=== PATIENT | male | born 1940 | race Caucasian/White ===

== ENCOUNTER 2016-12-29 17:58 | Inpatient (IN) | payer MEDICARE ==
[2016-12-29 19:05] LABS: Hematocrit 42.3 % (42.0-52.0); Hemoglobin 14.4 gm/dL (13.5-18.0); Mean Cell Volume 94.4 fl (78-100); Mean Corpuscular Hemoglobin 32.1 pg (27-31); Platelet Count 168 K/mm3 (150-450); Red Blood Count 4.48 M/mm3 (4.7-6.0); Red Cell Distribution Width 13.3 % (11.5-14.0); White Blood Count 5.4 K/mm3 (4.0-10.5)
--- NOTE | 2016-12-29 19:05 | ERNOTE ---
Medical Problem HPI - Narrative Date of Service: 12/29/16 - General Chief Complaint: General Assessment Time Seen by Provider: 12/29/16 18:48 Source: patient Exam Limitations: no limitations - Immun/Allergies/Home Medications Immunizations: IMMUNIZATION HX Immunizations Up to Date No History of Influenza Vaccine No Hx Pneumococcal Vaccination No Allergies/Adverse Reactions: Allergies Tetanus Vaccines and Toxoid [Tetanus Vaccines & Toxoid] Allergy (Mild, Verified 08/14/14 07:05) Hives Home Medications: HOME MEDICATIONS Atorvastatin Calcium [Lipitor] 40 mg PO HS 07/26/14 [Last Taken 08/14/14] Enoxaparin Sodium [Lovenox] 40 mg SC Q24H #6 disp.syrin 08/18/14 [Last Taken Unknown] Sennosides/Docusate Sodium [Senokot-S] 2 tab PO HS #20 tablet 08/18/14 [Last Taken Unknown] Aspirin 81 mg PO DAILY 12/29/16 [Last Taken Unknown] - History of Present History Narrative: Pt. comes in with c/o SOB for four days, weakness, fatigue, palpitations, and hot and cold flashes. Pt. denies any fvers, CP, NVD, but pt. has had an WA with three stents placed in 2004. Pt. denies any alleviating factors, aggravating factors, or prehospital treatment. Review of Systems - Review of Systems Constitutional: Present: chills, diaphoresis, weakness, fatigue, malaise. Absent: recent illness, fever, weight loss EYE: Present: no symptoms reported ENT: Present: no symptoms reported Respiratory: Present: shortness of breath. Absent: cough, wheezing Cardiology: Present: palpitations. Absent: chest pain, edema Gastrointestinal/Abdominal: Present: no symptoms reported. Absent: nausea, vomiting, diarrhea, abdominal pain Genitourinary: Present: no symptoms reported. Absent: frequency, decreased urinary output Musculoskeletal: Present: no symptoms reported. Absent: back pain, neck pain, joint pain Skin: Present: no symptoms reported Neurological: Present: no symptoms reported. Absent: headache, dizziness/light- headedness, numbness, tingling Endocrine: Present: intolerance to heat, intolerance to cold All Other Systems: All systems neg except as marked - Patient's Past Medical History Patient History - Medical: No pertinent hx Patient History - Cardiac/Respiratory: Hyperlipidemia, Myocardial Infarction Patient History - Cancer: No Hx of Cancer Patient History - Surgical Procedures: Cardiac stent, Total Knee Replacement Patient History - Other: None - Social History Living Situations: home Abuse History: No History of abuse Psych History: No pertinent hx Smoking Status: Former smoker Have you smoked in the past 12 months: No Do you dip or chew tobacco: No Alcohol Use: none Drug Use: none - Immunizations Immunizations Up to Date: No Hx Pneumococcal Vaccination: No History of Influenza Vaccine: No Physical Exam - Physical Exam General Appearance: Present: wd/wn, alert, moderate distress Eye Exam: Normal inspection: bilateral, PERRL: bilateral, EOMI: bilateral Ears, Nose, Throat: Present: normal ENT inspection, normal pharynx Neck: Present: normal inspection, nontender, supple, full range of motion. Absent: lymphadenopathy (R), lymphadenopathy (L) Respiratory: Present: no accessory muscle use, chest nontender, respiratory distress, decreased breath sounds Cardiovascular/Chest: Present: no murmur, tachycardia, irregularly irregular Peripheral Pulses: N=norm/S=strong/W=weak/B=bound/A=absent: Carotid (R): Normal , Carotid (L): Normal, Radial (R): Weak, Radial (L): Weak, Femoral (R): Normal, Femoral (L): Normal, Dorsalis-pedis (R): Weak, Dorsalis-pedis (L): Weak Gastrointestinal/Abdominal: Present: normal bowel sounds, nontender, nondistended, soft, no organomegaly Back Exam: Present: normal inspection, normal range of motion, no CVA tenderness , no vertebral tenderness Extremity Exam: Present: normal inspection, non-tender, normal range of motion, no edema Neurological Exam: Present: alert, oriented, normal mood/affect, no motor/ sensory deficits, motor boss II-XII nml as tested, normal cerebellar test Skin Exam: Present: cool/dry, pallor ED Progress - Date and Time Seen: Date and Time: 12/29/16 20:22 Discussed with Nadja and we will admit here for A fib RVR, SOB, and elevated D Dimer - Results and Orders Patient's Lab Results:: I have reviewed the patient's lab results. - Vital Signs Patient's Vital Signs:: I have reviewed the patient's vital signs. Vital Signs: Vital Signs 12/29/16 18:22 Temperature 37.5 C Pulse Rate 85 Respiratory 18 Rate Blood Pressure 130/48 O2 Sat by Pulse 95 Oximetry - EKG EKG: atrial fibrillation, other - RVR 172 EKG read: Reviewed by me EKG Comments: Interpret by Dr Plata - Progress/Reassessment Chief Complaint: General Assessment Departure - Departure Clinical Impression: A-fib Qualifiers: Atrial fibrillation type: unspecified Qualified Code(s): I48.91 - Unspecified atrial fibrillation Dyspnea Qualifiers: Dyspnea type: shortness of breath Qualified Code(s): R06.02 - Shortness of breath Disposition: CH Condition: Serious Referrals: Cindy Gutierrez MD [Primary Care Provider] -
--- OUTSIDE RECORDS SUMMARY | 2016-12-29 19:05 | XMS REPORT | Continuity of Care Document ---
:1940 Author Organization [facility] ([facility]) Address [address] [place] [address] Phone [phone] Care Team Providers Name Role Phone Heri Cevallos Primary Care Provider [phone] Source Comments This disclosure is being made pursuant to the Care Everywhere program, applicable federal and state laws, and may not contain all informaitonavailable regarding this patient.[facility] ([facility]) Active Allergies and Adverse Reactions Allergen Noted Date Severity Reactions Comments Tetanus Toxoid, Adsorbed 01/19/2015 Unknown Current Medications Prescription Sig. Disp. Refills Start Date End Date Status aspirin, buffered 81 mg Take 1 Tab by 12/19/2010 Active tablet mouth daily nitroglycerin Place 1 tablet 25 tablet 11 01/31/2016 Active (NITROSTAT) 0.4 mg SL (0.4 mg total) tablet under the tongue every 5 minutes as needed. atorvastatin 40 mg Take 1 tablet (40 90 tablet 1 07/17/2016 Active tablet mg total) by mouth daily. Active Problems Problem Noted Date Ascending aortic aneurysm 01/31/2015 Arthritis 01/30/2015 Chronic ischemic heart disease 05/15/2014 CAD in [place] artery 05/15/2014 Overview: Distal RCA Liberte 3.5 x 28 mm BMS in 2005 Essential (primary) hypertension 05/15/2014 Hypercholesterolemia without hypertriglyceridemia 02/01/2014 Social History Tobacco Use Types Packs/Day Years Used Date Former Smoker Last Filed Vital Signs Vital Sign Reading Time Taken Blood Pressure 126/88 01/30/2016 10:00 AM CDT Pulse 72 01/30/2016 10:00 AM CDT Temperature - - Respiratory Rate - - Height - - Weight 114.306 kg (252 lb) 01/30/2016 10:00 AM CDT Body Mass Index - - Oxygen Saturation - - Plan of Care Date Type Specialty Providers Description 01/28/2017 Appointment [facility], Chief Comp: Patient MD Reported Reason For [address] [place] [address] [phone] (Fax) Health Maintenance Due Date Last Done Comments Hepatitis B Vaccine (1 of 3 - Primary Series) 1940 Lipid Disorder Screening 1956 Colonoscopy 11/13/1988 Zoster Vaccine 1998 Pneumococcal Vaccine (1 of 2 - PCV13) 11/15/2003 Influenza Vaccine: Seasonal (Season Ended) 2017 Results from Last 3 Months Not on file
[2016-12-29 19:08] LABS: Total Cells Counted 100
[2016-12-29] MEDS ORDERED: DILTIAZEM HCL 5 MG/ML VIAL IV ONE ×2 (19:17→19:26)
[2016-12-29] MEDS ORDERED: NORMAL SALINE 1,000 ML IV ONE (19:19)
[2016-12-29 19:46] LABS: Albumin * 3.3 gm/dl (3.4-5.0); Anion Gap 14.7 mmol/L (6.8-13.8); Atypical (Reactive) Lymph 1 % (0-2); BUN/Creatinine Ratio 14.3 (9.0-21.6); Band 3 % (0-2.0); Basophil 1 % (0-1); Bilirubin, Total 0.8 mg/dL (0.0-1.1); Ca. Corrected For Albumin 8.7 mg/dL (8.4-10.2); Calcium * 8.5 mg/dL (7.9-10.9); Carbon Dioxide 25.4 mmol/L (24-32.6); Lymphocyte 20 % (20-51); Monocyte 6 % (0-9); Neutrophil 69 % (42-75); Neutrophil # 3.7 K/mm3 (1.3-6.0); Potassium 4.1 mmol/L (3.4-4.6); Total Protein 7.5 gm/dL (6.2-8.2)
[2016-12-29 19:48] LABS: Platelet Estimate Normal (NORMAL); Polychromasia Trace; RBC Morphology Normal (NORMAL); Troponin I 0.039 ng/ml (0.00-0.10)
--- OUTSIDE RECORDS SUMMARY | 2016-12-29 20:38 | XMS REPORT | Continuity of Care Document ---
:1940 Author Organization [facility] ([facility]) Address [address] [place] [address] Phone [phone] Care Team Providers Name Role Phone Heri Cevallos Primary Care Provider [phone] Source Comments This disclosure is being made pursuant to the Care Everywhere program, applicable federal and state laws, and may not contain all informaitonavailable regarding this patient.[facility] ([facility]) Active Allergies and Adverse Reactions Allergen [...] Chronic ischemic heart disease 05/15/2014 CAD in [place] artery 05/15/2014 Overview: Distal RCA Liberte 3.5 [...] Reported Reason For [address] [place] [address] [phone] (Fax) Health Maintenance Due Date Last Done Comments Hepatitis B Vaccine (1 of 3 - Primary Series) 1940 Lipid Disorder Screening 1956 Colonoscopy 11/13/1988 Zoster Vaccine 1998 Pneumococcal Vaccine (1 of 2 - PCV13) 11/15/2003 Influenza Vaccine: Seasonal (Season Ended) 2017 Results from Last 3 Months Not on file
[2016-12-29 21:30] LABS: Urine Bilirubin Negative (NEGATIVE); Urine Blood Negative /ul (NEGATIVE); Urine Ketone Negative (NEGATIVE); Urine Nitrite Negative (NEGATIVE); Urine Protein 15 mg/dL (NEGATIVE); Urine Specific Gravity 1.025 SP.GR. (1.005-1.030); Urine pH 5.5 pH (5.0-7.0)
[2016-12-29 21:45] LABS: Urine Appearance Clear; Urine Bacteria 1+; Urine Coarse Granular Cast 0-5 /LPF; Urine Color Dark Yellow; Urine Fine Granular Cast 0-5 /LPF; Urine Mucus Few - 1+; Urine RBC None Seen /hpf (0-5); Urine WBC None Seen /hpf (0-5)
[2016-12-29] MEDS ORDERED: NORMAL SALINE 1,000 ML IV PRN (22:20)
--- NOTE | 2016-12-29 22:40 | HP ---
Chief Complaint - Chief Complaint Date of Service: 12/29/16 Time of Service: 22:40 Chief Complaint: " Worsening SOB". Source of HPI- Pt; reliable, ER provider report. History of Present Illness: Mr. Contreras is a 76-yr-old WM pt with a PMH of: CAD, HTN, HLD, Gout, MD, Osteoathritis & Osteopenia. Pt reports that he has been in his normal state of wellbeing until Last 12/25, when he noticed that he was getting more SOB.This was later accompanied by hot & cold flashes and coughing. The cough however is dry. He reports that the SOB was worse even with mild activity such as walking to the mail box. He denies the associated symptoms of palpitations, chest pain, or pain with inspiration and expiration. He chose to go to walk-in clinic as he 'just wasn't getting any better with his SOB, coughing and hot/ cold flashes.' His HR was found to be irregular by the examining provider and pt was sent to the ED for further evaluation. While at the ED, he was found to be in Afib with RVR of 170s. He was given Cardizem 20mg IVP X 1 and that controlled his HR to the low 100s-120s. The CXR obtained showed no Pneumonia but there were findings concerning pulmonary edema/ CHF and his BNP was also found to be elevated at 3924.The BMP showed elevated BUN/CR 26/1.82 suggestive of Acute on Chronic Renal Failure. Pt will be admitted inpatient due to new clinical presentation signs of CHF, New onset of A-fib with RVR & Acute on Chronic Renal failure. - Patient's Past Medical History Patient History - Medical: Osteoarthritis, Other - Gout, Osteopenia, Patient History - Cardiac/Respiratory: Hypertension, Hyperlipidemia, Myocardial Infarction Patient History - Cancer: No Hx of Cancer Patient History - Surgical Procedures: Cardiac stent, Total Knee Replacement Patient History - Other: None - Family History Father Family History - Medical: Family History - Cardiac/Respiratory: Coronary Heart Disease Mother Family History - Cardiac/Respiratory: Coronary Heart Disease, Hypertension - Social History Living Situations: home Abuse History: No History of abuse Psych History: No pertinent hx Smoking Status: Former smoker Have you smoked in the past 12 months: No Do you dip or chew tobacco: No Alcohol Use: none Drug Use: none - Immunizations Immunizations Up to Date: No Hx Pneumococcal Vaccination: No History of Influenza Vaccine: No Review Of Systems (GEN) - Review of Systems Generalized/Overall Review: Present: Weakness, Chills, Malaise, Diaphoresis, Fatigue. Absent: Fever EENTM: Absent: Eye Pain, Blurred Vision, Double Vision, Nose Congestion Respiratory: Present: Cough, Shortness of Breath. Absent: Orthopnea Cardiac: Absent: Chest Pain, Edema, Palpitations Abdominal: Absent: Nausea, Vomiting, Hematemesis, Constipation, Diarrhea Genitourinary: Absent: Burning, Itching, Urgency, Frequency Musculoskeletal: Absent: Joint Pain, Back Pain, Joint Swelling Neurological: Absent: Headache, Anxiety, Depressed, Emotional Problems Skin: Absent: Dryness, Lesions, Lumps Endocrine: Absent: Intolerance to Heat, Increased Hunger Misc: All systems neg except as marked Allergies/Adverse Reactions: Allergies Allergy/AdvReac Type Severity Reaction Status Date / Time Tetanus Vaccines and Toxoid Allergy Mild Hives Verified 08/14/14 07:05 [Tetanus Vaccines & Toxoid] Home Medications: HOME MEDICATIONS Atorvastatin Calcium [Lipitor] 40 mg PO HS 07/26/14 [Last Taken 08/14/14] Sennosides/Docusate Sodium [Senokot-S] 2 tab PO HS #20 tablet 08/18/14 [Last Taken Unknown] Aspirin 81 mg PO DAILY 12/29/16 [Last Taken Unknown] Exam - Exam Vital Signs: Vital Signs - Last Taken Temp 37.9 C H 12/29/16 19:23 Pulse 125 H 12/29/16 21:08 Resp 20 12/29/16 21:08 BP 131/63 12/29/16 21:08 Pulse Ox 94 12/29/16 21:08 Constitutional: Present: Alert, Oriented x3, Cooperative, No distress ENT Exam: Present: normal ENT inspection, hearing grossly normal, dry mucous membranes Eye Exam: bilateral eye: normal inspection, PERRL Neck: Present: full range of motion, supple, normal inspection Back Exam: Present: normal inspection, no CVA tenderness Breasts: Present: Exam deferred Respiratory: Present: normal breath sounds, accessory muscle use, No wheezing Cardiovascular/Chest: Present: normal peripheral pulses, regular rate, rhythm, no chest tenderness, no murmur Abdomen: Present: Normal bowel sounds, soft, nontender, obese /Rectal: Present: Exam deferred Extremity: Present: normal range of motion, non-tender, normal inspection, no pedal edema Skin Exam: Present: diaphoresis, other - Flushed face Lymphatic: Present: no adenopathy Neurologic: Present: no motor/sensory deficits, alert, normal mood/affect, oriented x 3 Appearance: Present: appropriate appearance, appropriate insight Eye contact: Present: cooperative, good eye contact, normal speech Thoughts: Present: normal thought pattern, no apparent hallucination Diagnostic Studies: Abnormal Lab Results 12/29/16 Range/Units 21:25 Urine Protein 15 H (NEGATIVE) mg/dL Urine Urobilinogen 2.0 H (NORMAL) EU/dl Urine Bacteria 1+ H (NONE) Fine Granular Casts 0-5 H (NONE) /LPF Coarse Granular Casts 0-5 H (NONE) /LPF Urine Mucus Few - 1+ H (NONE) Laboratory Results WBC 5.4 K/mm3 (4.0-10.5) 12/29/16 19:00 RBC 4.48 M/mm3 (4.7-6.0) L 12/29/16 19:00 Hgb 14.4 gm/dL (13.5-18.0) 12/29/16 19:00 Hct 42.3 % (42.0-52.0) 12/29/16 19:00 MCV 94.4 fl (78-100) 12/29/16 19:00 MCH 32.1 pg (27-31) H 12/29/16 19:00 MCHC 34.0 g/dl (32-36) 12/29/16 19:00 RDW 13.3 % (11.5-14.0) 12/29/16 19:00 Plt Count 168 K/mm3 (150-450) 12/29/16 19:00 Neutrophils % (Manual) 69 % (42-75) 12/29/16 19:00 Band Neuts % (Manual) 3 % (0-2.0) H 12/29/16 19:00 Lymphocytes % (Manual) 20 % (20-51) 12/29/16 19:00 Monocytes % (Manual) 6 % (0-9) 12/29/16 19:00 Basophils % (Manual) 1 % (0-1) 12/29/16 19:00 Neutrophils # (Manual) 3.7 K/mm3 (1.3-6.0) 12/29/16 19:00 Lymphocytes # (Manual) 1.1 k/mm3 (1.5-3.5) L 12/29/16 19:00 Monocytes # (Manual) 0.3 k/mm3 (0.0-1.0) 12/29/16 19:00 Basophils # (Manual) 0.1 k/mm3 (0.0-0.1) 12/29/16 19:00 Atypic/Reactive Lymphs 1 % (0-2) 12/29/16 19:00 Toxic Vacuolation Trace 12/29/16 19:00 Platelet Estimate Normal (NORMAL) 12/29/16 19:00 RBC Morphology Normal (NORMAL) 12/29/16 19:00 Polychromasia Trace 12/29/16 19:00 D-Dimer 3.41 mg/L (0.19-0.49) H 12/29/16 19:00 Sodium 131 mmol/L (132-142) L 12/29/16 19:00 Plasma Sodium 132 mmol/L (130-142) 12/29/16 19:00 Potassium 4.1 mmol/L (3.4-4.6) 12/29/16 19:00 Chloride 95 mmol/L (97-106) L 12/29/16 19:00 Carbon Dioxide 25.4 mmol/L (24-32.6) 12/29/16 19:00 Anion Gap 14.7 mmol/L (6.8-13.8) H 12/29/16 19:00 BUN 26 mg/dL (6-23) H 12/29/16 19:00 Creatinine 1.82 mg/dL (0.4-1.4) H 12/29/16 19:00 Est GFR (Non-Af Amer) 38 mL/min (60-130) L 12/29/16 19:00 BUN/Creatinine Ratio 14.3 (9.0-21.6) 12/29/16 19:00 Random Glucose 132 mg/dL (70-110) H 12/29/16 19:00 Calcium 8.5 mg/dL (7.9-10.9) 12/29/16 19:00 Calcium Adj for Albumin 8.7 mg/dL (8.4-10.2) 12/29/16 19:00 Total Bilirubin 0.8 mg/dL (0.0-1.1) 12/29/16 19:00 AST 74 U/L (0-48) H 12/29/16 19:00 ALT 81 U/L (19-67) H 12/29/16 19:00 Alkaline Phosphatase 116 U/L (50-170) 12/29/16 19:00 Troponin I 0.039 ng/ml (0.00-0.10) 12/29/16 19:00 B-Natriuretic Peptide 3924 pg/mL (5-650) H 12/29/16 19:00 Total Protein 7.5 gm/dL (6.2-8.2) 12/29/16 19:00 Albumin 3.3 gm/dl (3.4-5.0) L 12/29/16 19:00 Urine Color Dark yellow 12/29/16 21:25 Urine Appearance Clear 12/29/16 21:25 Urine pH 5.5 pH (5.0-7.0) 12/29/16 21:25 Ur Specific Central 1.025 SP.GR. (1.005-1.030) 12/29/16 21:25 Urine Protein 15 mg/dL (NEGATIVE) H 12/29/16 21:25 Urine Glucose (UA) Negative mg/dL (NEGATIVE) 12/29/16 21: Urine Ketones Negative mg/dL (NEGATIVE) 12/29/16 21:25 Urine Blood Negative /ul (NEGATIVE) 12/29/16 21:25 Urine Nitrate Negative (NEGATIVE) 12/29/16 21:25 Urine Bilirubin Negative mg/dl (NEGATIVE) 12/29/16 21:25 Prot Sulfosalicylic Acd Negative mg/dL (0) 12/29/16 21:25 Urine Urobilinogen 2.0 EU/dl (NORMAL) H 12/29/16 21:25 Ur Leukocyte Esterase Negative /ul (NEGATIVE) 12/29/16 21:25 Urine RBC None seen /hpf (0-5) 12/29/16 21:25 Urine WBC None seen /hpf (0-5) 12/29/16 21:25 Ur Epithelial Cells 0-5 /hpf (0-5) 12/29/16 21:25 Urine Bacteria 1+ (NONE) H 12/29/16 21:25 Fine Granular Casts 0-5 /LPF (NONE) H 12/29/16 21:25 Coarse Granular Casts 0-5 /LPF (NONE) H 12/29/16 21:25 Urine Mucus Few - 1+ (NONE) H 12/29/16 21:25 Urine Culture Comments No culture indicated 12/29/16 21:25 Influenza Type A Ag Negative (NEGATIVE) 12/29/16 18:30 Influenza Type B Ag Negative (NEGATIVE) 12/29/16 18:30 Assessment/Plan - Assessment/Plan (1) CHF (congestive heart failure) Assessment: Mr. Contreras presented with c/c of worsening SOB. He denies PND & Orthopnea and has no peripheral edema/lower extremity edema. The CXR obtained at the ED showed increased peripheral lung vascular markings, Cardiomegaly, and was also noted to have BNP 3924 and all of the findings are suggestive of CHF. Will diurese with IV Lasix and give replacement dose of K orally. He will need an Echocardiogram to determine and valvular Heart disease & ventricular size. Will monitor kidney function and volume status to determine upcoming doses. Also provide CHF teaching, monitor daily weight and I/O, Check BMP in am. Problem: Acute (2) New onset a-fib Assessment: Pt noted to have a new onset of Afib and will therefore need to be on Thromboembolic prophylaxis. He has a score of 3 on MOE'S 2 Score which is a high risk of thromboembolic event & there is 5.9% per yr if no coumadin. I have discussed with him about the increased risk of stroke or from thromboembolism/clot due to Afib and how it can be reduced by being on an anticoagulant. He wants to wait until tomorrow to discuss further after checking with spouse. Problem: Acute (3) Atrial fibrillation with RVR Assessment: Received Cardizem IV 20mg at the ED which controlled his HR to 100s-120s. Will place on Remote telemetry and go with Rate control with Cardizem if he starts sustaining 140s-150s, as long as bp is stable, otherwise will go Rhythm control and use Amiodarone. Problem: Acute (4) Acute on chronic renal failure Assessment: His baseline CR is usually in the 1.5-1.7. Today's is 1.82. Hold off hydration due to pulmonary congestion on CXR and SOB. Monitor BMP in am. Problem: Acute (5) Elevated d-dimer Assessment: Pt noted to habe a D-dimer of 3.47. Unable to obtain CT with PE protocol due to pt's elevated creatinine. Will provide coverage with Heparin SQ and plan to obtain a VQ Lung scan in am. Problem: Acute (6) HTN (hypertension) Assessment: Stable- Not on any antihypertensives. Problem: Chronic (7) HLD (hyperlipidemia) Problem: Chronic
[2016-12-29] MEDS ORDERED: METOLAZONE 5 MG TABLET PO SCH (23:00)
[2016-12-29] MEDS ORDERED: FUROSEMIDE 10 MG/ML VIAL IV SCH (23:00)
[2016-12-29] MEDS ORDERED: POTASSIUM CHLORIDE 20 MEQ TABLET.SA PO SCH (23:00)
[2016-12-30] MEDS: HEPARIN SODIUM,PORCINE 5,000 UNITS/ML VIAL SC SCH ×4 (00:20→23:09)
[2016-12-30 06:16] LABS: Anion Gap 16.6 mmol/L (6.8-13.8); BUN/Creatinine Ratio 15.4 (9.0-21.6); Calcium * 8.8 mg/dL (7.9-10.9); Estimated Creat Clear 37.6; Potassium 3.6 mmol/L (3.4-4.6)
[2016-12-30 06:38] LABS: Hematocrit 42.8 % (42.0-52.0); Hemoglobin 14.7 gm/dL (13.5-18.0); Mean Cell Volume 93.9 fl (78-100); Mean Corpuscular Hemoglobin 32.2 pg (27-31); Mean Corpuscular Hgb Conc 34.3 g/dl (32-36); Platelet Count 167 K/mm3 (150-450); Red Blood Count 4.56 M/mm3 (4.7-6.0); Red Cell Distribution Width 13.2 % (11.5-14.0); White Blood Count 5.7 K/mm3 (4.0-10.5)
[2016-12-30 06:52] LABS: Total Cells Counted 100
[2016-12-30 07:05] LABS: Band 7 % (0-2.0); Immature Granulocyte 2 (0-1); Lymphocyte 20 % (20-51); Monocyte 2 % (0-9); Neutrophil 69 % (42-75); Neutrophil # 3.9 K/mm3 (1.3-6.0); Platelet Estimate Normal (NORMAL); RBC Morphology Normal (NORMAL)
[2016-12-30] MEDS ORDERED: DILTIAZEM HCL 5 MG/ML VIAL IV ONE ×2 (08:56→13:32)
[2016-12-30] MEDS ORDERED: ASPIRIN 81 MG TAB.CHEW PO SCH (09:00)
[2016-12-30] MEDS ORDERED: DILTIAZEM HCL 120 MG CAP.SR.24H PO SCH (09:30)
[2016-12-30] MEDS ORDERED: DILTIAZEM HCL 125 MG in DEXTROSE 5 % IN WATER 100 ML IV PRN ×4 (12:45→12:50)
[2016-12-30] MEDS ORDERED: NORMAL SALINE 500 ML IV ONE (13:00)
[2016-12-30] MEDS: NORMAL SALINE 1,000 ML IV PRN ×2 (14:39→20:14)
[2016-12-30] MEDS: DILTIAZEM HCL 90 MG TABLET PO SCH (16:48)
[2016-12-30] MEDS: AMIODARONE HCL 200 MG TABLET PO SCH ×2 (16:49→23:05)
[2016-12-30] MEDS ORDERED: SENNOSIDES/DOCUSATE SODIUM 1 TAB TABLET PO SCH ×2 (21:00)
[2016-12-30] MEDS ORDERED: ATORVASTATIN CALCIUM 40 MG TABLET PO SCH (21:00)
[2016-12-30] MEDS ORDERED: ROSUVASTATIN CALCIUM 10 MG TABLET PO SCH ×2 (21:00)
--- NOTE | 2016-12-30 23:57 | PN ---
Subjective - Date and Time Seen Date: 12/30/16 Time: 08:00 Objective Objective Narrative: Reports feeling better. No chest pain, shortness of breath, fever, or chills. - Vitals Vitals: Last Vital Signs Temp 37.3 C 12/30/16 22:49 Pulse 100 12/30/16 22:49 Resp 18 12/30/16 22:49 BP 121/78 12/30/16 22:49 Pulse Ox 95 12/30/16 22:49 - Exam Constitutional: Present: Alert, Oriented x3, Cooperative Respiratory: Present: lungs clear, normal breath sounds Cardiovascular/Chest: Present: tachycardia, irregularly irregular Abdomen: Present: Normal bowel sounds, soft, nontender, nondistended Skin Exam: Present: normal color, warm/dry, no cyanosis Cauti Physician Documentation - Urinary Catheter Management Uretheral (Olson) Urethral Indwelling: No Assessment/Plan - Problems/Diagnosis (1) Atrial fibrillation with RVR Problem: Acute Narrative: Rate improved with cardizem and amiodarone, still with atrial fibrillation with RVR at times with unstable rate. Patient admitted to acute inpatient due to CHF exacerbation with ustable atrial fibrillation with RVR. Working to control rate with oral medications, but so far unsuccessful. Will continue to titrate up doses. Echo cardiogram today. (2) CHF (congestive heart failure) Problem: Acute
[2016-12-31] MEDS: DILTIAZEM HCL 90 MG TABLET PO SCH ×2 (00:18→07:50)
--- NOTE | 2016-12-31 05:14 | PN ---
Subjective - Date and Time Seen Date: 12/31/16 Time: 05:08 Subjective Narrative: Mr. Contreras is seen today for follow-up of atrial fibrillation w/ RVR and acute congestive heart failure. He was transitioned off of IV diltiazem yesterday and is currently taking dilitiazem 90 mg po Q8 hours in addition to amiodarone 200 mg po Q6 hours. He remains in atrial fibrillation with a controlled rate in the 70s-90s. He denies any chest pain or shortness of breath. His only complaint is that he feels sluggish. Appetite is good. He has been afebrile and hemodynamically stable overnight. Objective - Review of Systems Generalized/Overall Review: Reports: No Symptoms Reported Respiratory: Reports: No Symptoms Reported Cardiac: Reports: No Symptoms Reported Genitourinary Symptoms: Reports: No Symptoms Reported - Vitals Vitals: Last Vital Signs Temp 36.6 C 12/31/16 00:27 Pulse 92 12/31/16 02:07 Resp 20 12/31/16 00:27 BP 113/79 12/31/16 00:27 Pulse Ox 93 12/31/16 00:27 - Exam Constitutional: Present: Alert, Oriented x3, Cooperative ENT Exam: Present: normal ENT inspection, hearing grossly normal, hard of hearing Neck: Present: non-tender Respiratory: Present: chest non-tender, lungs clear, normal breath sounds Cardiovascular/Chest: Present: no edema, no murmur, irregularly irregular Abdomen: Present: Normal bowel sounds Extremity: Present: normal range of motion Skin Exam: Present: normal color, warm/dry, no cyanosis Lymphatic: Present: no adenopathy Neurologic: Present: junior loan processor II-XII nml as tested, oriented x 3 Appearance: Present: appropriate appearance, appropriate insight Eye contact: Present: cooperative, good eye contact Thoughts: Present: normal thought pattern Cauti Physician Documentation - Urinary Catheter Management Uretheral (Olson) Urethral Indwelling: No Assessment/Plan - Problems/Diagnosis (1) A-fib Problem: Acute Qualifiers: Atrial fibrillation type: unspecified Qualified Code(s): I48.91 - Unspecified atrial fibrillation Narrative: His rate has been well-controlled overnight. CHADS2 score is 3 recommending anticoagulation. Continue diltiazem 90 mg Q 8 hours. Consider transitioning to long-acting formulation. Amiodarone 200 mg every 6 hours. (2) Acute on chronic renal failure Problem: Acute Narrative: Creatinine 1.6 yesterday. IV fluids discontinued due to heart failure. He is eating and drinking normally. Closely monitor renal function. Avoid nephrotoxic medications. (3) CHF (congestive heart failure) Problem: Acute Narrative: Echocardiogram on 12/30/2016 reveals LVH with normal EF. No regional wall motion abnormalities. IV fluids were discontinued last evening. He received furosemide initially during hospitalization. Consider adding a beta jose luis to help with rate control in a-fib. ASA 81 mg daily. Daily weights. Strict I&Os. (4) Elevated d-dimer Problem: Acute Narrative: Due to poor renal function, he cannot undergo CT angiogram. VQ scan considered. He is currently on heparin every 8 hours. He will require anticoagulation due to atrial fibrillation. (5) HTN (hypertension) Problem: Chronic Narrative: Currently normotensive.
[2016-12-31] MEDS: AMIODARONE HCL 200 MG TABLET PO SCH ×2 (05:38→10:40)
[2016-12-31] MEDS: HEPARIN SODIUM,PORCINE 5,000 UNITS/ML VIAL SC SCH ×2 (05:38→14:04)
[2016-12-31] MEDS ORDERED: ASPIRIN 81 MG TAB.CHEW PO SCH (09:00)
[2016-12-31] MEDS ORDERED: DILTIAZEM HCL 120 MG CAP.SR.24H PO SCH (09:30)
--- NOTE | 2016-12-31 12:10 | ECHO ---
This report is available in the EMR
[2016-12-31 12:43] LABS: Anion Gap 11.7 mmol/L (6.8-13.8); BUN/Creatinine Ratio 18.7 (9.0-21.6); Bilirubin, Total 0.7 mg/dL (0.0-1.1); Ca. Corrected For Albumin 9.3 mg/dL (8.4-10.2); Calcium * 8.8 mg/dL (7.9-10.9); Carbon Dioxide 28.5 mmol/L (24-32.6); Potassium 3.2 mmol/L (3.4-4.6); TSH * 2.004 uIU/mL (0.358-3.74); Total Protein 7.1 gm/dL (6.2-8.2)
[2016-12-31 14:42] VITALS: BP 139/70
--- NOTE | 2016-12-31 16:28 | DS ---
(1) Atrial fibrillation with RVR Problem: Acute (2) Acute on chronic renal failure Problem: Acute Description of Stay: Santana is a 76 yo male that was admitted with acute CHF, acute on chronic kidney disease stage 3, and new onset atrial fibrillation with rapid ventricular response. He was give IV diltiazem which improved rate from 150s to near 100. He was started on oral diltiazem, but heart rate began to increase. He was placed in the SCU on a diltiazem drip. He continued to have tachycardia and amiodarone was started orally 200mg q6 hours. Heart rate began to improve and he was transitioned to oral diltiazem. He was moved back to the medical floor. He was evaluated with echocardiogram which showed acute diastolic CHF. No clear etiology for atrial fibrillation. He was diuresed with evidence of CHF of pulmonary congestion gently due to CKD3 that was worsened from 1.5 to 1.8. On the morning of 12/31 at 7AM he converted to normal sinus rhythm spontaneously while taking oral diltiazem and amiodarone. He was feeling back to his baseline and he was monitored through the day and remained in sinus rhythm. He was discharged to home. Discussed anticoagulation with him and he elected for eliquis. Discussed that even though he was back in normal sinus rhythm now that his atrial fibrillation may return and he should be on anticoagulation due to his chads score. 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 Montes at [facility] on 01-14-17 @ 2:15pm, they will decide to keep the appointment on the if needed . Follow up with Dr. Gutierrez on 01-07-17 @ 2:30pm. Prescriptions (Any new or edited meds): Amiodarone HCl [Cordarone] 200 mg PO DAILY #30 tablet Apixaban [Eliquis] 5 mg PO BID #60 tablet Diltiazem HCl [Diltiazem 24Hr Cd] 240 mg PO HS #30 cap.er.24h Complete Home Medications List: Complete Home Medication List: Atorvastatin Calcium [Lipitor] 40 mg PO HS 07/26/14 Sennosides/Docusate Sodium [Senokot-S] 2 tab PO HS #20 tablet 08/18/14 Aspirin 81 mg PO DAILY 12/29/16 Amiodarone HCl [Cordarone] 200 mg PO DAILY #30 tablet 12/31/16 Apixaban [Eliquis] 5 mg PO BID #60 tablet 12/31/16 Diltiazem HCl [Diltiazem 24Hr Cd] 240 mg PO HS #30 cap.er.24h 12/31/16
== END 2016-12-31 17:20 | disposition home or self-care (01) | DRG 308 ==
LOC: ER 17:58 → MS 20:34 → OBSVTOIN 12-30 12:44 → SCU 12-30 13:29 → MS 12-30 17:37
PROVIDERS: ADMIT Nurse Practitioner; ATTEND Family Medicine
PROC: B246ZZZ Ultrasonography of Right and Left Heart (ICD-10-PCS; principal; 2016-12-30)
DX: I48.91 Unspecified atrial fibrillation (principal); I50.31 Acute diastolic (congestive) heart failure; N17.9 Acute kidney failure, unspecified; E78.5 Hyperlipidemia, unspecified; R79.1 Abnormal coagulation profile; I12.9 Hypertensive chronic kidney disease with stage 1 through stage 4 chronic kidney disease, or unspecified chronic kidney disease; N18.3 Chronic kidney disease, stage 3 (moderate); I25.2 Old myocardial infarction; Z95.5 Presence of coronary angioplasty implant and graft; Z79.82 Long term (current) use of aspirin
CPT/HCPCS: 36415; 71020; 80048; 80053; 81001; 83880; 84443; 84484; 85007; 85025; 85379; 87400; 93005; 93306; 94760; 96374; 99284; G0378

== ENCOUNTER 2018-04-30 10:27 | Inpatient (IN) | payer MEDICARE ==
[2018-04-30] MEDS ORDERED: ALBUTEROL SULFATE/IPRATROPIUM 3 ML NEBU IH PRN (18:45)
[2018-04-30] MEDS ORDERED: ROSUVASTATIN CALCIUM 10 MG TABLET ONE (20:47)
[2018-04-30] MEDS: DOXYCYCLINE HYCLATE 100 MG TABLET PO SCH (20:54)
[2018-04-30] MEDS: APIXABAN 5 MG TABLET PO SCH (20:54)
[2018-04-30 20:55] LABS: Hematocrit 32.9 % (42.0-52.0); Hemoglobin 10.8 gm/dL (13.5-18.0); Mean Cell Volume 96.5 fl (78-100); Mean Corpuscular Hemoglobin 31.7 pg (27-31); Mean Corpuscular Hgb Conc 32.8 g/dl (32-36); Mean Platelet Volume 8.9 fl (8-11.3); Neutrophil # 10.3 K/mm3 (1.3-6.0); Platelet Count 253 K/mm3 (150-450); Red Blood Count 3.41 M/mm3 (4.7-6.0); White Blood Count 13.2 K/mm3 (4.0-10.5)
[2018-04-30] MEDS: ROSUVASTATIN CALCIUM 20 MG TABLET PO SCH (20:55)
[2018-04-30 21:11] LABS: Albumin * 2.9 gm/dl (3.4-5.0); BUN/Creatinine Ratio 12.4 (9.0-21.6); Bilirubin, Total 0.5 mg/dL (0.0-1.1); Ca. Corrected For Albumin 9.1 mg/dL (8.4-10.2); Calcium * 8.5 mg/dL (7.9-10.9)
--- NOTE | 2018-04-30 22:05 | HP ---
Chief Complaint - Chief Complaint Date of Service: 04/30/18 Time of Service: 18:31 History of Present Illness: 77 year old male presented to the walk in clinic today for cough (states it is sometimes productive, sometimes not) and shortness of breath. States it has been ongoing for "a long time". He denied fever or chills. He denied CP or shortness of breath. He was directly admitted to the hospital for observation for concern of PNA. He had a WBC of 13.2 with a left shift. He was started on O2 once he got to the floor as his sats were @ 88%, he is currently sating 92% on 2L NC when I was able to see him. He was given a round of rocephin for possible multi-focal PNA seen on XR but this looks to be more likely a pulmonary vascular congestion issue. He denies CHF. His other vitals are WNL. He states that the only medications he takes is apixiban, amiodarone, and atorvastatin. He is comfortable now, breathing easy. Medical History (Last Reviewed 04/30/18 @ 15:18 by Brooke Millard RN) Degenerative disc disease Onset Date: ~2012 CAD (coronary artery disease) Onset Date: Unknown COPD (chronic obstructive pulmonary disease) Onset Date: ~2017 Essential hypertension Onset Date: Unknown Gout Onset Date: Unknown Hyperlipidemia Onset Date: Unknown History of fracture of wrist Onset Date: Unknown History of heart artery stent Onset Date: ~2006 Myocardial infarction Onset Date: Unknown Surgical History: Surgical History (Last Reviewed 04/30/18 @ 15:18 by Brooke Millard RN) History of knee replacement procedure of left knee Onset Date: ~2014 History of knee replacement procedure of right knee Onset Date: ~2006 Family History: Family History (Last Reviewed 04/30/18 @ 15:19 by Brooke Millard RN) Father No problems noted. Mother Hypertension CAD (coronary artery disease) Social History: Patient Lives/Resources With Spouse Utilized Occupation Retired Preferred Language Estonian Do you have any samaritan or No cultural preference? Smoking Status Former smoker Have you smoked in the past 12 No months Abuse History No History of abuse Psych History No pertinent hx Review Of Systems (GEN) - Review of Systems Generalized/Overall Review: Present: No Symptoms Reported EENTM: Present: No Symptoms Reported Respiratory: Present: Cough, Shortness of Breath Cardiac: Present: No Symptoms Reported Abdominal: Present: No Symptoms Reported Genitourinary: Present: No Symptoms Reported Musculoskeletal: Present: No Symptoms Reported Neurological: Present: No Symptoms Reported Skin: Present: No Symptoms Reported Immunizations: IMMUNIZATION HX Immunizations Up to Date No History of Influenza Vaccine No Hx Pneumococcal Vaccination No Allergies/Adverse Reactions: Allergies Allergy/AdvReac Type Severity Reaction Status Date / Time Tetanus Vaccines and Toxoid Allergy Mild Hives Verified 04/30/18 15:19 [Tetanus Vaccines & Toxoid] Home Medications: HOME MEDICATIONS Atorvastatin Calcium [Lipitor] 40 mg PO HS 07/26/14 [Last Taken 04/29/18] Amiodarone HCl [Cordarone] 200 mg PO DAILY #30 tab 12/31/16 [Last Taken 04/29/18 ] Apixaban [Eliquis] 5 mg PO BID #60 tab 12/31/16 [Last Taken 04/29/18] albuterol sulfate HFA 90 mcg/actuation aerosol inhaler 2 puff IH Q4H PRN [Last Taken 04/29/18] umeclidinium 62.5 mcg/actuation blister powder for inhalation 1 inh IH DAILY # 30 ea 03/19/18 [Last Taken 04/29/18] Exam - Exam Vital Signs: Vital Signs - Last Taken Temp 36.6 C 04/30/18 21:00 Pulse 85 04/30/18 21:00 Resp 19 04/30/18 21:00 BP 131/51 04/30/18 21:00 Pulse Ox 92 L 04/30/18 21:00 Constitutional: Present: Alert, Oriented x3, Cooperative, Obese ENT Exam: Present: hearing grossly normal. Absent: nasal congestion, nasal drainage Neck: Present: non-tender, supple. Absent: lymphadenopathy (R), lymphadenopathy (L) Back Exam: Present: normal inspection, no CVA tenderness Respiratory: Present: chest non-tender, no respiratory distress, decreased breath sounds - bases of his lungs, wheezing - diffuse, end expiratory Cardiovascular/Chest: Present: normal peripheral pulses, regular rate, rhythm, no edema, no murmur Abdomen: Present: Normal bowel sounds, soft, nontender, nondistended /Rectal: Present: Exam deferred Extremity: Present: no pedal edema, normal capillary refill Skin Exam: Present: normal color, warm/dry Appearance: Present: appropriate appearance, appropriate insight Eye contact: Present: cooperative Thoughts: Present: normal thought pattern, normal mood /affect Diagnostic Studies: Abnormal Lab Results 04/30/18 04/30/18 Range/Units 20:50 20:50 WBC 13.2 H D (4.0-10.5) K/mm3 RBC 3.41 L (4.7-6.0) M/mm3 Hgb 10.8 L (13.5-18.0) gm/dL Hct 32.9 L (42.0-52.0) % MCH 31.7 H (27-31) pg Immature Gran # (Auto) 0.05 H (0.000-0.0310) K/mm3 Neutrophils % 78.0 H (42-75.0) % Lymphocytes % 11.4 L (20-51) % Monocytes % 9.8 H (0.0-9) % Neutrophils # 10.3 H (1.3-6.0) K/mm3 Monocytes # 1.3 H (0.0-1.0) k/mm3 Creatinine 1.78 H (0.4-1.4) mg/dL Est GFR (Non-Af Amer) 39 L (60-130) mL/min Random Glucose 136 H (70-110) mg/dL Albumin 2.9 L (3.4-5.0) gm/dl Laboratory Results WBC 13.2 K/mm3 (4.0-10.5) H D 04/30/18 20:50 RBC 3.41 M/mm3 (4.7-6.0) L 04/30/18 20:50 Hgb 10.8 gm/dL (13.5-18.0) L 04/30/18 20:50 Hct 32.9 % (42.0-52.0) L 04/30/18 20:50 MCV 96.5 fl (78-100) 04/30/18 20:50 MCH 31.7 pg (27-31) H 04/30/18 20:50 MCHC 32.8 g/dl (32-36) 04/30/18 20:50 RDW 14.0 % (11.5-14.0) 04/30/18 20:50 Plt Count 253 K/mm3 (150-450) 04/30/18 20:50 MPV 8.9 fl (8-11.3) 04/30/18 20:50 Immature Gran % (Auto) 0.40 % (0.001-0.429) 04/30/18 20:50 Immature Gran # (Auto) 0.05 K/mm3 (0.000-0.0310) H 04/30/18 20:50 Neutrophils % 78.0 % (42-75.0) H 04/30/18 20:50 Lymphocytes % 11.4 % (20-51) L 04/30/18 20:50 Monocytes % 9.8 % (0.0-9) H 04/30/18 20:50 Eosinophils % 0.2 % (0.0-3.0) 04/30/18 20:50 Basophils % 0.2 % (0.0-1.0) 04/30/18 20:50 Nucleated RBC % 0.0 k/mm3 (0-1) 04/30/18 20:50 Neutrophils # 10.3 K/mm3 (1.3-6.0) H 04/30/18 20:50 Lymphocytes # 1.50 k/mm3 (1.5-3.5) 04/30/18 20:50 Monocytes # 1.3 k/mm3 (0.0-1.0) H 04/30/18 20:50 Eosinophils # 0.0 k/mm3 (0.0-0.7) 04/30/18 20:50 Absolute Basophils 0.0 k/mm3 (0.0-0.1) 04/30/18 20:50 Sodium 134 mmol/L (132-142) 04/30/18 20:50 Plasma Sodium 135 mmol/L (130-142) 04/30/18 20:50 Potassium 4.0 mmol/L (3.4-4.6) 04/30/18 20:50 Chloride 101 mmol/L (97-106) 04/30/18 20:50 Carbon Dioxide 27.0 mmol/L (24-32.6) 04/30/18 20:50 Anion Gap 10.0 mmol/L (6.8-13.8) 04/30/18 20:50 BUN 22 mg/dL (6-23) 04/30/18 20:50 Creatinine 1.78 mg/dL (0.4-1.4) H 04/30/18 20:50 Est GFR (Non-Af Amer) 39 mL/min (60-130) L 04/30/18 20:50 BUN/Creatinine Ratio 12.4 (9.0-21.6) 04/30/18 20:50 Random Glucose 136 mg/dL (70-110) H 04/30/18 20:50 Calcium 8.5 mg/dL (7.9-10.9) 04/30/18 20:50 Calcium Adj for Albumin 9.1 mg/dL (8.4-10.2) 04/30/18 20:50 Total Bilirubin 0.5 mg/dL (0.0-1.1) 04/30/18 20:50 AST 20 U/L (0-48) 04/30/18 20:50 ALT 29 U/L (19-67) 04/30/18 20:50 Alkaline Phosphatase 78 U/L (50-170) 04/30/18 20:50 Total Protein 7.0 gm/dL (6.2-8.2) 04/30/18 20:50 Albumin 2.9 gm/dl (3.4-5.0) L 04/30/18 20:50 Assessment/Plan - Assessment/Plan (1) Community acquired pneumonia Assessment: Patient given 1 gr of rocephin. Will start course of doxycycline (no azithromycin due to qt prolongation with amio). Continue o2 to maintain sats between 88-92%, titrate as needed. Repeat CBC in the AM. Concern for new onset CHF (elevated BNP in the clinic today, 1600) as the other cause of his pulmonary issue. No fluids at this time. His VS are stable. Will look at labs tomorrow to see if he has improvement with his kidney function, holding diuretics as well for this reason. If patient feeling better in the AM, likely he can go home tomorrow with out-patient echo to be scheduled. Problem: Suspected (2) COPD (chronic obstructive pulmonary disease) Assessment: Maintian o2 between 88-92%. Duo nebs ordered. Again, his breathing issues likely either related to CHF or PNA, no not treating for COPD exacerbation. He looks to good for this to be the case. Problem: Acute (3) Atrial fibrillation with RVR Assessment: Currently his HR is in normal rate and appears to be in sinus. Will order an ekg. Only med used for rate control on his home list is amiodarone which I continued. EKG ordered. He is currently on a blood thinner so no DVT prophylaxis needed. Problem: Acute (4) HLD (hyperlipidemia) Assessment: continue crestor Problem: Chronic (5) HTN (hypertension) Assessment: currently WNL, will monitor Problem: Chronic (6) CKD (chronic kidney disease) Assessment: Would like to give fluids to help with this but concerned for fluid overload. Will see what is GFR and creatinine or in the morning. Will monitor Problem: Chronic
[2018-05-01] MEDS ORDERED: AMIODARONE HCL 200 MG TABLET PO SCH ×2 (06:29→09:00)
[2018-05-01] MEDS: AMOX TR/POTASSIUM CLAVULANATE 875 MG TABLET PO SCH ×2 (08:23→20:10)
[2018-05-01] MEDS: DOXYCYCLINE HYCLATE 100 MG TABLET PO SCH ×2 (08:23→20:09)
[2018-05-01] MEDS: APIXABAN 5 MG TABLET PO SCH ×2 (08:23→20:10)
[2018-05-01] MEDS ORDERED: AMIODARONE HCL 150 MG in DEXTROSE 5 % IN WATER 100 ML IV ONE ×2 (09:00)
[2018-05-01] MEDS: FUROSEMIDE 10 MG/ML VIAL IV SCH (09:16)
--- NOTE | 2018-05-01 09:58 | PN ---
Subjective - Date and Time Seen Date: 05/01/18 Time: 06:38 Subjective Narrative: Patient states that he feels well. His only concern is his SOB but otherwise he denies fever/chills, weakness, CP. He is still coughing but it is nonproductive. He has been in NSR since arrival until recently were he converted back to a-fib C RVR. He states that he can not feel himself go into this rhythm. His VS have been stable other than his hypoxia. Objective - Review of Systems Generalized/Overall Review: Reports: No Symptoms Reported Respiratory: Reports: Cough, Shortness of Breath, Wheezing Cardiac: Reports: No Symptoms Reported Abdominal: Reports: No Symptoms Reported Genitourinary Symptoms: Reports: No Symptoms Reported Musculoskeletal Complaints: Reports: No Symptoms Reported Neurological: Reports: No Symptoms Reported Skin: Reports: No Symptoms Reported - Vitals Vitals: Last Vital Signs Temp 36.4 C 05/01/18 07:14 Pulse 126 H 05/01/18 09:16 Resp 16 05/01/18 07:14 BP 126/64 05/01/18 09:16 Pulse Ox 91 L 05/01/18 07:14 - Abnormal Lab Findings Abnormal Lab Findings: Abnormal Lab Results 04/30/18 04/30/18 Range/Units 20:50 20:50 WBC 13.2 H D (4.0-10.5) K/mm3 RBC 3.41 L (4.7-6.0) M/mm3 Hgb 10.8 L (13.5-18.0) gm/dL Hct 32.9 L (42.0-52.0) % MCH 31.7 H (27-31) pg Immature Gran # (Auto) 0.05 H (0.000-0.0310) K/mm3 Neutrophils % 78.0 H (42-75.0) % Lymphocytes % 11.4 L (20-51) % Monocytes % 9.8 H (0.0-9) % Neutrophils # 10.3 H (1.3-6.0) K/mm3 Monocytes # 1.3 H (0.0-1.0) k/mm3 Creatinine 1.78 H (0.4-1.4) mg/dL Est GFR (Non-Af Amer) 39 L (60-130) mL/min Random Glucose 136 H (70-110) mg/dL Albumin 2.9 L (3.4-5.0) gm/dl - EKG/Xray Findings EKG: atrial fibrillation EKG read: Reviewed by me XRAY: chest - pulmonary congestion - Exam Constitutional: Present: Alert, Oriented x3 ENT Exam: Present: hearing grossly normal. Absent: nasal drainage Neck: Present: non-tender, supple Respiratory: Present: chest non-tender, no respiratory distress, decreased breath sounds - diffusely. Absent: wheezing Cardiovascular/Chest: Present: normal peripheral pulses, tachycardia - a-fib c RVR. Absent: regular rate, rhythm Abdomen: Present: Normal bowel sounds, soft, nontender Skin Exam: Present: normal color, warm/dry Appearance: Present: appropriate appearance, appropriate insight Eye contact: Present: cooperative, increased rate of speech Thoughts: Present: normal thought pattern Assessment/Plan - Problems/Diagnosis (1) CHF (congestive heart failure) Problem: Acute Narrative: BNP >1600. Will add lasix but will monitor closely as he has chronic kidney disease. Last echo was roughly 16 months ago and showed a normal EF (though he was in a-fib at the time). He is not on a beta jose luis or acei. Will start these one he is stable. Continue o2 therapy to maintain sats between 90-94%. Will monitor kidney function while on lasix He will need another echo but if he stabilizes this can be set up out patient. If he continues to struggle, will get one while here. He was changes to inpatient today. (2) Community acquired pneumonia Problem: Suspected Narrative: He is on doxycycline as well as augmentin. Will continue. He is a-febrile and his cough is non-productive. Think it is more likely related to the fluid in his lungs from the CHF then actual infection. Will repeat his CBC in the A.M. (3) COPD (chronic obstructive pulmonary disease) Problem: Acute Narrative: Duonebs as needed. o2 therapy as stated earlier. Will continue to monitor but i think this is stable and does not need steroids at this time. (4) Atrial fibrillation with RVR Problem: Acute Narrative: Called and discussed this case with Dr. Montes, he advised we load him with 150 mg amio over 30 minutes and then start on an amio drip 1 mg/ml x 6 hrs and then 0.5 mg/min x 18 hrs. Then increase his PO dosage to 400 BID for 1 week, change to 400 mg PO daily thereafter. Will have him follow up with Dr Montes after discharge (5) HLD (hyperlipidemia) Problem: Chronic Narrative: continue home meds (6) HTN (hypertension) Problem: Chronic Narrative: well controlled (7) CKD (chronic kidney disease) Problem: Chronic
[2018-05-01] MEDS ORDERED: AMIODARONE HCL 900 MG in DEXTROSE 5 % IN WATER 500 ML IV SCH ×2 (10:30)
[2018-05-01] MEDS: ROSUVASTATIN CALCIUM 20 MG TABLET PO SCH (20:11)
[2018-05-02 07:19] LABS: Hematocrit 35.6 % (42.0-52.0); Hemoglobin 11.4 gm/dL (13.5-18.0); Mean Cell Volume 97.3 fl (78-100); Mean Corpuscular Hemoglobin 31.1 pg (27-31); Mean Platelet Volume 9.2 fl (8-11.3); Neutrophil # 8.7 K/mm3 (1.3-6.0); Neutrophil % 71.3 % (42-75.0); Platelet Count 341 K/mm3 (150-450); Red Blood Count 3.66 M/mm3 (4.7-6.0); Red Cell Distribution Width 13.6 % (11.5-14.0); White Blood Count 12.2 K/mm3 (4.0-10.5)
[2018-05-02 07:30] LABS: Anion Gap 12.6 mmol/L (6.8-13.8); BUN/Creatinine Ratio 14.1 (9.0-21.6); Calcium * 8.9 mg/dL (7.9-10.9); Carbon Dioxide 26.3 mmol/L (24-32.6); Estimated Creat Clear 36.6; Potassium 3.9 mmol/L (3.4-4.6)
[2018-05-02] MEDS: AMOX TR/POTASSIUM CLAVULANATE 875 MG TABLET PO SCH (08:27)
[2018-05-02] MEDS: DOXYCYCLINE HYCLATE 100 MG TABLET PO SCH (08:27)
[2018-05-02] MEDS: APIXABAN 5 MG TABLET PO SCH (08:27)
[2018-05-02] MEDS: FUROSEMIDE 10 MG/ML VIAL IV SCH (08:27)
[2018-05-02] MEDS: METOPROLOL TARTRATE 1 MG/ML AMPUL IV SCH ×2 (12:06→13:35)
[2018-05-02] MEDS ORDERED: METOPROLOL TARTRATE 25 MG TABLET PO SCH (12:45)
--- NOTE | 2018-05-02 17:07 | DS ---
(1) CHF (congestive heart failure) Problem: Acute Qualifiers: Heart failure chronicity: chronic (2) Community acquired pneumonia Problem: Suspected (3) COPD (chronic obstructive pulmonary disease) Problem: Chronic (4) Atrial fibrillation with RVR Problem: Chronic (5) HLD (hyperlipidemia) Problem: Chronic (6) HTN (hypertension) Problem: Chronic (7) CKD (chronic kidney disease) Problem: Chronic Description of Stay: 77 yo CM presented to the hospital for SOB and cough. It was suspected that he had Community acquired PNA as well as a mild CHF exacerbation. He was started on abx and lasix. His BNP was a little over 1600 in the walk in clinic. His VS were stable throughout the course of his stay aside from his a-fib acting up. Discussed him with Dr. 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 After loading him with amiodarone, he reverted back to NSR which he stayed in except for a span of 4 hours where this was treated by adding a small amount of metoprolol which addressed the issue. He will be sent home on this medication as well. He is to follow up with Dr. Montes soon. Otherwise, his stay was uneventful and he did well. Procedures Performed: none Results and Findings: Lab Pending Results 04/30/18 20:50: WBC 13.2 H D, RBC 3.41 L, Hgb 10.8 L, Hct 32.9 L, MCV 96.5, MCH 31.7 H, MCHC 32.8, RDW 14.0, Plt Count 253, MPV 8.9, Immature Gran % (Auto) 0.40 , Immature Gran # (Auto) 0.05 H, Neutrophils % 78.0 H, Lymphocytes % 11.4 L, Monocytes % 9.8 H, Eosinophils % 0.2, Basophils % 0.2, Nucleated RBC % 0.0, Neutrophils # 10.3 H, Lymphocytes # 1.50, Monocytes # 1.3 H, Eosinophils # 0.0, Absolute Basophils 0.0 04/30/18 20:50: Sodium 134, Plasma Sodium 135, Potassium 4.0, Chloride 101, Carbon Dioxide 27.0, Anion Gap 10.0, BUN 22, Creatinine 1.78 H, Est GFR (Non-Af Amer) 39 L, BUN/Creatinine Ratio 12.4, Random Glucose 136 H, Calcium 8.5, Calcium Adj for Albumin 9.1, Total Bilirubin 0.5, AST 20, ALT 29, Alkaline Phosphatase 78, Total Protein 7.0, Albumin 2.9 L 05/02/18 07:06: WBC 12.2 H, RBC 3.66 L, Hgb 11.4 L, Hct 35.6 L, MCV 97.3, MCH 31.1 H, MCHC 32.0, RDW 13.6, Plt Count 341, MPV 9.2, Immature Gran % (Auto) 0.50 H, Immature Gran # (Auto) 0.06 H, Neutrophils % 71.3, Lymphocytes % 16.4 L , Monocytes % 9.4 H, Eosinophils % 2.2, Basophils % 0.2, Nucleated RBC % 0.0, Neutrophils # 8.7 H, Lymphocytes # 2.00, Monocytes # 1.1 H, Eosinophils # 0.3, Absolute Basophils 0.0 05/02/18 07:06: Sodium 135, Plasma Sodium 135, Potassium 3.9, Chloride 100, Carbon Dioxide 26.3, Anion Gap 12.6, BUN 23, Creatinine 1.63 H, Est GFR (Non-Af Amer) 44 L, BUN/Creatinine Ratio 14.1, Random Glucose 121 H, Calcium 8.9 Discharge Location: Home Disposition: Home self-care Condition: Stable Discharge Activity: Activity as tolerated Discharge Diet: Low fat/chol Referrals: Emmanuel Priest DO [Staff Physician] - One Week Additional Patient Instructions (free text): -Please make TCM appointment unless senior care discharge. Thank you! Sana @ [phone]. Complete Home Medications List: Complete Home Medication List: Atorvastatin Calcium [Lipitor] 40 mg PO HS 07/26/14 Amiodarone HCl [Cordarone] 200 mg PO DAILY #30 tab 12/31/16 Apixaban [Eliquis] 5 mg PO BID #60 tab 12/31/16 albuterol sulfate HFA 90 mcg/actuation aerosol inhaler 2 puff IH Q4H PRN umeclidinium 62.5 mcg/actuation blister powder for inhalation 1 inh IH DAILY # 30 ea 03/19/18 Furosemide [Lasix] 20 mg PO DAILY #30 tablet 05/02/18
[2018-05-02 17:55] VITALS: BP 132/67
[2018-05-02] MEDS ORDERED: AMIODARONE HCL 200 MG TABLET PO SCH (21:00)
== END 2018-05-02 17:50 | disposition home or self-care (01) | DRG 291 ==
LOC: CCFAL → RAD 10:27 → MS 10:27 → SCU 05-01 09:58 → MS 05-01 11:52
PROVIDERS: ADMIT Family Medicine; ATTEND Family Medicine
CPT/HCPCS: 36415; 71020; 71046; 80048; 80053; 83519; 83880; 85025; 93005